=== PATIENT | female | born 1945 | race Caucasian/White ===

== ENCOUNTER 2018-01-25 16:20 | Inpatient (IN) | payer MEDICARE ==
[~2018-01-25] VITALS: Ht 162.6 cm; Wt 80.0 kg
[2018-01-25] VITALS (10 sets, daily range): BP systolic 140–211; BP diastolic 84–128; PULSE 62–185; RESP 16–20; TEMP 98–98.2; O2SAT 95–98
[~2018-01-25 16:20] MED LIST: 1-ME1LIQ PO; ATOR40TA49 PO; COQ1200C3 PO; DILTCD240 PO; LISI20 PO; OMEG100037 PO; VITA100017 PO
--- NOTE | 2018-01-25 16:29 | PD ---
HPI Chief Complaint: Cardiac Complaint Time Seen by Provider: 16:29 Travel History International Travel<30 days: No Contact w/Intl Traveler<30days: No Traveled to known affect area: No History of Present Illness HPI 72-year-old female came to the emergency room with history of palpitations that started little while ago. Patient looked extremely anxious. She has history of SVT and sees Dr. De Dios for it. EKG was done and it showed narrow complex tachycardia. Patient denies of any chest pain. She appeared extremely anxious and any detailed history was difficult to be obtained due to her state. She was hypertensive upon arrival as well. [facility] Past Medical History Narrative Medical List of her past medical, surgical, social and family history is reviewed from the nursing note. Autoimmune Disease: No Anxiety: No Depression: No Cancer: No Chemotherapy: No Diabetes: No Endocrine: No Immune Disorder: No Psychiatric: No Radiation Therapy: No Sickle Cell Disease: No Thyroid Disease: No Past Surgical History Abdominal Surgery: Yes (appendectomy) AICD: No Appendectomy: Yes Arteriovenous Shunt: No Genitourinary Surgery: Yes (enodometreosis) Insulin Pump: No Joint Replacement: No Pacemaker: No Social History Alcohol Use: Yes (occ) Tobacco Use: No Substance Use: No Allergies-Medications (Allergen,Severity, Reaction): Coded Allergies: No Known Allergies (Unverified Allergy, Unknown, 01/25/18) Comments No known drug allergies. Reported Meds & Prescriptions Reported Meds & Active Scripts Active Reported Hydrochlorothiazide 25 Mg Tab 25 Mg PO DAILY Losartan (Losartan Potassium) 100 Mg Tab 100 Mg PO DAILY Narrative Medication List of her home medications reviewed from the nursing note. Review of Systems Except as stated in HPI: all other systems reviewed are Neg Cardiovascular: Positive: Palpitations Physical Exam Narrative GENERAL: Awake, alert, anxious, moderate distress SKIN: Focused skin assessment warm/dry. HEAD: Atraumatic. Normocephalic. EYES: Pupils equal and round. No scleral icterus. No injection or drainage. ENT: No nasal bleeding or discharge. Mucous membranes pink and moist. NECK: Trachea midline. No JVD. CARDIOVASCULAR: Regular rate and rhythm. Tachycardia. No murmur appreciated. RESPIRATORY: No accessory muscle use. Clear to auscultation. Breath sounds equal bilaterally. GASTROINTESTINAL: Abdomen soft, non-tender, nondistended. Hepatic and splenic margins not palpable. MUSCULOSKELETAL: No obvious deformities. No clubbing. No cyanosis. No edema. NEUROLOGICAL: Awake and alert. No obvious cranial nerve deficits. Motor grossly within normal limits. Normal speech. PSYCHIATRIC: Appropriate mood and affect; insight and judgment normal. Data Data Last Documented VS Vital Signs Date Time Temp Pulse Resp B/P (MAP) Pulse Ox O2 Delivery O2 Flow Rate FiO2 01/25/18 17:57 114 170/106 (127) 178/107 (130) 01/25/18 17:56 16 98 Nasal Cannula 2.00 01/25/18 16:28 98.2 Orders Orders Adenosine Inj (Adenocard Inj) (01/25/18 16:33) Adenosine Inj (Adenocard Inj) (01/25/18 16:39) Lorazepam Inj (Ativan Inj) (01/25/18 16:44) Electrocardiogram (01/25/18 16:47) Basic Metabolic Panel (Bmp) (01/25/18 16:47) Complete Blood Count With Diff (01/25/18 16:47) Magnesium (Mg) (01/25/18 16:47) Prothrombin Time / Inr (Pt) (01/25/18 16:47) Troponin I (01/25/18 16:47) Chest, Single Ap (01/25/18 16:47) Ecg Monitoring (01/25/18 16:47) Bilateral Bp Monitoring (01/25/18 16:47) Iv Access Insert/Monitor (01/25/18 16:47) Oximetry (01/25/18 16:47) Oxygen Administration (01/25/18 16:47) Sodium Chloride 0.9% Flush (Ns Flush) (01/25/18 17:00) Vital Signs (Adult) Q15MX4,Q4H (01/25/18 16:47) Naval Inspector / Telemetry AMADO.Q8H (01/25/18 16:47) Cardiac Rhythm AMADO.Q8H (01/25/18 16:47) Notify Dr: Other (01/25/18 16:47) Diltiazem Inj (Cardizem Inj) (01/25/18 17:00) Diltiazem Inj (Cardizem Inj) (01/25/18 17:00) Lorazepam Inj (Ativan Inj) (01/25/18 17:00) Heparin Inj (Heparin Inj) (01/25/18 17:45) Heparin Inj (Heparin Inj) (01/25/18 23:45) Heparin Inj (Heparin Inj) (01/25/18 23:45) Heparin-D5w 25,000 U/250 Ml (Heparin-D5w (01/25/18 17:45) Cbc No Diff, Includes Plts (01/28/18 06:00) Act Partial Throm Time (Ptt) (01/26/18 00:36) Occult Blood (Hemoccult) Stool (01/25/18 17:36) Heparin-D5w 25,000 U/250 Ml (Heparin-D5w (01/25/18 18:00) Potassium Chlor 10 Meq Premix (Kcl 10 Me (01/25/18 18:00) Potassium Chloride (Kcl) (01/25/18 18:00) Admit Order (Ed Use Only) (01/25/18 18:19) Admit To Inpatient (01/25/18 ) Vital Signs (Adult) Q4H (01/25/18 18:17) Activity Oob Ad Ladi (01/25/18 18:17) Activity Bed Rest With Brp (01/25/18 18:17) Diet Heart Healthy (01/25/18 Dinner) Sodium Chlor 0.9% 1000 Ml Inj (Ns 1000 M (01/25/18 19:00) Sodium Chloride 0.9% Flush (Ns Flush) (01/25/18 18:30) Sodium Chloride 0.9% Flush (Ns Flush) (01/25/18 21:00) Acetaminophen (Tylenol) (01/25/18 19:00) Ondansetron Inj (Zofran Inj) (01/25/18 19:00) Basic Metabolic Panel (Bmp) (01/26/18 06:00) Complete Blood Count With Diff (01/26/18 06:00) Resp Oxygen Chris C Titrat 1-4 L (01/25/18 ) Naloxone Inj (Narcan Inj) (01/25/18 18:30) Magnesium Hydroxide Liq (Milk Of Magnesi (01/25/18 19:00) Potassium Chloride (Kcl) (01/25/18 21:00) Consult Cardiology (01/25/18 ) Hydrochlorothiazide (Hydrodiuril) (01/25/18 20:00) Losartan (Cozaar) (01/26/18 09:00) Thyroid Stimulating Hormone (01/25/18 16:45) Act Partial Throm Time (Ptt) (01/25/18 16:45) Labs Laboratory Tests Test 01/25/18 16:45 White Blood Count 11.6 TH/MM3 Red Blood Count 5.54 MIL/MM3 Hemoglobin 16.1 GM/DL Hematocrit 47.0 % Mean Corpuscular Volume 84.9 FL Mean Corpuscular Hemoglobin 29.1 PG Mean Corpuscular Hemoglobin Concent 34.3 % Red Cell Distribution Width 12.9 % Platelet Count 229 TH/MM3 Mean Platelet Volume 9.3 FL Neutrophils (%) (Auto) 70.6 % Lymphocytes (%) (Auto) 21.3 % Monocytes (%) (Auto) 5.3 % Eosinophils (%) (Auto) 2.4 % Basophils (%) (Auto) 0.4 % Neutrophils # (Auto) 8.2 TH/MM3 Lymphocytes # (Auto) 2.5 TH/MM3 Monocytes # (Auto) 0.6 TH/MM3 Eosinophils # (Auto) 0.3 TH/MM3 Basophils # (Auto) 0.0 TH/MM3 CBC Comment DIFF FINAL Differential Comment Prothrombin Time 10.0 SEC Prothromb Time International Ratio 1.0 RATIO Activated Partial Thromboplast Time 24.5 SEC Blood Urea Nitrogen 16 MG/DL Creatinine 0.75 MG/DL Random Glucose 157 MG/DL Calcium Level 10.7 MG/DL Magnesium Level 1.9 MG/DL Sodium Level 140 MEQ/L Potassium Level 2.9 MEQ/L Chloride Level 106 MEQ/L Carbon Dioxide Level 21.8 MEQ/L Anion Gap 12 MEQ/L Estimat Glomerular Filtration Rate 76 ML/MIN Troponin I LESS THAN 0.02 NG/ML Thyroid Stimulating Hormone 3rd Gen 1.030 uIU/ML [facility] Medical Decision Making Medical Screen Exam Complete: Yes Emergency Medical Condition: Yes Medical Record Reviewed: Yes Interpretation(s) Twelve-lead EKG was reviewed by me. Narrow complex tachycardia. Heart rate of 189 bpm. Differential Diagnosis A. fib with RVR, atrial flutter, supraventricular tachycardia Narrative Course 6:15 PM patient was chemically cardioverted by me. Please refer to my procedure note. Overall patient tolerated it well. She was given 1 mg of Ativan for her anxiety. I just went back and reassessed her and her heart rate is in 1 teens. She is persistently in atrial fibrillation as per a repeat EKG just done. As per the patient, this is new. She has been worked up by her medical records analyst in the past and has never been told that she has A. Fib. She is not on any blood thinners. I have started her on Cardizem drip and heparin bolus and drip. I discussed the case with Dr. Gatica who is on-call for cardiology. As per him the management so far has been adequate but she will require to be transferred to the main hospital so that she can be seen by [place] epic analyst. I discussed this with the patient and she knows the plan. I discussed the case with the hospitalist was accepted the patient. Awaiting for transfer. Also her potassium level was low. Patient was given p.o. and IV replacement. Critical Care Narrative Aggregate critical care time was 60 minutes. Time to perform other separately billable procedures was not included in the critical care time. My time did not include minutes spent treating any other patients simultaneously or on activities that did not directly contribute to the patient's treatment. The services I provided to this patient were to treat and/or prevent clinically significant deterioration that could result in: Narrow complex tachycardia, chemical cardioversion, Cardizem bolus and drip , heparin bolus and drip, IV potassium replacement for hypokalemia I provided critical care services requiring my management, as noted below: Chart data review, documentation time, medication orders and management, vital sign assessments/reviewing monitor data, ordering and reviewing lab tests, ordering and interpreting/reviewing x-rays and diagnostic studies, care of the patient and discussion of the patient with the admitting physicians. Procedures Procedure Narrative Chemical cardioversion: 6 mg of adenosine was injected through an AC line. This did not cause a cardioversion. A repeat of adenosine was done with 12 mg at this time. Patient did convert briefly for about 10 seconds and went back to the narrow complex tachycardia without P waves. Patient was given another 12 mg of adenosine and this time she converted and stayed persistently in a converted rhythm. There was a 12-lead EKG constantly running which captured the pause after Adenosine injection and the post conversion. Patient was in A. fib with RVR post conversion. Overall patient tolerated the procedure well. Blood pressure remained hypertensive. EKG Prior to Arrival: No Physician Communication Physician Communication Dr. Gatica Diagnosis Primary Impression: SVT (supraventricular tachycardia) Additional Impressions: Atrial fibrillation with RVR Hypertension Qualified Codes: I10 - Essential (primary) hypertension New onset a-fib Hypokalemia Admitting Information Admitting Physician Requests: Admit Juan Tyler MD Jan 25, 2018 16:29
[2018-01-25] MEDS ORDERED: ADENOSINE IV SOLN 3 MG/ML 2 ML VIAL ONE ×2 (16:33→16:39)
[2018-01-25] MEDS ORDERED: LORazepam 2 MG/ML VIAL ONE (16:44)
[2018-01-25] MEDS ORDERED: LORazepam 2 MG/ML VIAL IV PUSH ONE (17:00)
[2018-01-25] MEDS ORDERED: SODIUM CHLORIDE 0.9% FLUSH 10 ML FLUSH IVF PRN (17:00)
[2018-01-25] MEDS ORDERED: DILTIAZEM HCL 25 MG/5 ML VIAL IV PUSH ONE (17:00)
[2018-01-25 17:01] LABS: AUTOMATED NEUTROPHIL # 8.2 TH/MM3 (1.8-7.7); BASOPHIL % 0.4 % (0.0-2.0); EOSINOPHIL # 0.3 TH/MM3 (0-0.4); EOSINOPHIL % 2.4 % (0.0-4.0); HEMOGLOBIN 16.1 GM/DL (11.6-15.3); LYMPH % 21.3 % (9.0-44.0); LYMPHOCYTE # 2.5 TH/MM3 (1.0-4.8); MEAN CELL VOLUME 84.9 FL (80.0-100.0); MEAN CORPUSCULAR HEMOGLOBIN 29.1 PG (27.0-34.0); MEAN CORPUSCULAR HGB CONC 34.3 % (32.0-36.0); MEAN PLATELET VOLUME 9.3 FL (7.0-11.0); MONO % 5.3 % (0.0-8.0); MONOCYTE # 0.6 TH/MM3 (0-0.9); NEUT % 70.6 % (16.0-70.0); PLATELET COUNT 229 TH/MM3 (150-450); RED BLOOD COUNT 5.54 MIL/MM3 (4.00-5.30); RED CELL DISTRIBUTION WIDTH 12.9 % (11.6-17.2); WHITE BLOOD COUNT 11.6 TH/MM3 (4.0-11.0)
[2018-01-25] MEDS: DILTIAZEM INJ 125 MG in SODIUM CHLORIDE 0.9% INJ 100 ML IV PRN (17:24)
--- NOTE | 2018-01-25 17:27 | RADRPT ---
EXAM DATE/TIME: 01/25/2018 16:52 [facility] COMPARISON: CHEST SINGLE AP, June 28, 2016, 12:34. INDICATIONS : Chest pain. MEDICAL HISTORY : Hypertension. SURGICAL HISTORY : Appendectomy. ENCOUNTER: Initial ACUITY: 1 day PAIN SCORE: 4/10 LOCATION: Bilateral chest FINDINGS: A single view of the chest demonstrates the lungs to be symmetrically aerated without evidence of mas s, infiltrate or effusion. The cardiomediastinal contours are unremarkable. Advanced degenerative c hanges in both shoulders, stable.. CONCLUSION: The lungs are clear. Ronnell Jules MD on January 25, 2018 at 17:24 Board Certified Radiologist. This report was verified electronically.
[2018-01-25 17:34] LABS: BICARBONATE 21.8 MEQ/L (21.0-32.0); BLOOD UREA NITROGEN 16 MG/DL (7-18); CALCIUM 10.7 MG/DL (8.5-10.1); CHLORIDE 106 MEQ/L (98-107); CREATININE 0.75 MG/DL (0.50-1.00); GLOMERULAR FILTRATION RATE 76 ML/MIN (>89); GLUCOSE,RANDOM 157 MG/DL (74-106); MAGNESIUM 1.9 MG/DL (1.5-2.5); SODIUM (NA) 140 MEQ/L (136-145); TROPONIN I LESS THAN 0.02 NG/ML (0.02-0.05)
[2018-01-25] MEDS ORDERED: HEPARIN-D5W 25,000 U/250 ML 250 ML IV PRN (17:45)
[2018-01-25] MEDS ORDERED: HEPARIN SODIUM - IV 10,000 UNITS/10 ML VIAL IV ONE (17:45)
[2018-01-25] MEDS ORDERED: POTASSIUM CHLORIDE 20 MEQ CONTROLLED RELEASE TAB PO ONE (18:00)
[2018-01-25] MEDS ORDERED: HEPARIN 25,000 UNITS/D5W 250ML IV PRN (18:00)
[2018-01-25] MEDS ORDERED: POTASSIUM CHLOR 10 MEQ PREMIX 100 ML IV ONE (18:00)
[2018-01-25] MEDS ORDERED: HYDR25TA5 PO (18:16)
[2018-01-25] MEDS ORDERED: METO1TAB43 PO (18:16)
[2018-01-25] MEDS ORDERED: LOSA100T PO (18:16)
[2018-01-25] MEDS ORDERED: SODIUM CHLORIDE 0.9% FLUSH 10 ML FLUSH IV FLUSH PRN (18:30)
[2018-01-25] MEDS ORDERED: NALOXONE HCL 0.4 MG/ML AMP IV PUSH PRN (18:30)
[2018-01-25] MEDS ORDERED: ACETAMINOPHEN 325 MG TAB PO PRN (19:00)
[2018-01-25] MEDS ORDERED: ONDANSETRON HCL 4 MG/2 ML VIAL IVP PRN (19:00)
[2018-01-25] MEDS ORDERED: MAGNESIUM HYDROXIDE SUSP 30 ML CUP PO PRN (19:00)
[2018-01-25] MEDS: SODIUM CHLOR 0.9% 1000 ML INJ 1,000 ML IV SCH (19:45)
[2018-01-25] MEDS: HYDROCHLOROTHIAZIDE 25 MG TAB PO SCH (20:00)
[2018-01-25] MEDS: POTASSIUM CHLORIDE 10 MEQ CONTROLLED RELEASE TAB PO SCH (21:00)
[2018-01-25] MEDS: SODIUM CHLORIDE 0.9% FLUSH 10 ML FLUSH IV FLUSH SCH (21:00)
[2018-01-25] MEDS ORDERED: METOPROLOL TARTRATE 5 MG/5 ML VIAL IV PUSH ONE (21:00)
[2018-01-25] MEDS ORDERED: HEPARIN SODIUM - IV 10,000 UNITS/10 ML VIAL IV PRN ×2 (23:45)
--- NOTE | 2018-01-25 23:52 | HHI.HP ---
HPI Service [facility] Primary Care Physician Unknown Admission Diagnosis SVT, A. fib with RVR, new onset A. fib Diagnoses: (1) SVT (supraventricular tachycardia) (2) Atrial fibrillation with RVR (3) New onset a-fib (4) Hypertension Chief Complaint: Palpitations Travel History International Travel<30 Days: No Contact w/Intl Traveler <30 Da: No Traveled to Known Affected Are: No History of Present Illness Ms. Rachel is a very pleasant 72 year-old female with a history of hypertension and SVT who presented to the ER in [place] with SVT. The patient received Adenosine per ACLS protocol requiring a third dose at 12 mg IV to convert out of SVT. Following conversion, she went into atrial fibrillation with RVR and was placed upon a Cardizem drip. Dr. Gatica was assistant finance director business relationship manager and recommended admission to [facility] under hospitalist service for possible EPS study. The patient is seen in her hospital room. She reports similar episode 18 months ago that occurred immediately following a spinning class at the [facility]. Today, she attended and spinning class as well but felt fine afterwards until about 1330 when she felt a little light headed and then began to feel severe palpitations. She states her entire body felt like it was vibrating. She states this is exactly the way she felt with SVT 18 months ago. She remained at home for about 2 hours, hoping that she could break the rhythm on her own. She denies any accompanying chest pain, shortness of breath, diaphoresis, nausea , or vomiting. She has been in her normal state of good health prior to this. Outpatient assistant finance director is Dr. Muniz. She saw him last one week ago. Review of Systems Except as stated in HPI: all other systems reviewed are Neg Past Family Social History Past Medical History SVT 1 and 1/2 years ago Hypertension . Past Surgical History Appendectomy Tonsillectomy Surgery for Endometriosis . Reported Medications Reported Meds & Active Scripts Active Reported Hydrochlorothiazide 25 Mg Tab 25 Mg PO DAILY Losartan (Losartan Potassium) 100 Mg Tab 100 Mg PO DAILY . Allergies: Coded Allergies: No Known Allergies (Unverified Allergy, Unknown, 4/4/18) Family History Father age 48 from [place] GF in his 70's from [place] Uncle in his 70's from [place] GM from a [place] in her 70's . Social History Tobacco: smoked in the 80's rarely and only socially Alcohol: drinks wine on weekends Illicit Drugs: denies . Physical Exam Vital Signs Vital Signs Date Time Temp Pulse Resp B/P (MAP) Pulse Ox O2 Delivery O2 Flow Rate FiO2 01/25/18 23:11 98.0 71 16 146/84 (104) 96 01/25/18 22:14 01/25/18 21:51 62 18 140/88 (105) 95 Room Air 01/25/18 19:49 106 18 156/108 (124) 96 Nasal Cannula 2.00 01/25/18 18:25 118 18 164/112 (129) 98 Nasal Cannula 2.00 01/25/18 17:57 114 170/106 (127) 178/107 (130) 01/25/18 17:56 141 16 178/107 (130) 98 Nasal Cannula 2.00 01/25/18 17:24 136 168/110 01/25/18 16:40 124 16 211/111 (144) 98 Nasal Cannula 2.00 01/25/18 16:37 98 Nasal Cannula 2.00 01/25/18 16:37 189 01/25/18 16:30 98 Nasal Cannula 2.00 01/25/18 16:30 16 98 Nasal Cannula 2.00 01/25/18 16:28 98.2 185 20 183/128 (146) 96 Physical Exam CONSTITUTIONAL: This is a well-nourished, well-developed female patient who appears younger than her stated age, in no apparent distress. INTEGUMENTARY: No rashes lesions. Cool and dry. HEAD: Atraumatic. Normocephalic. EYES: No scleral icterus. No injection or drainage. ENT: Nose without bleeding, purulent drainage. NECK: Trachea midline. No JVD. CARDIOVASCULAR: Irregularly irregular rate and rhythm without murmurs, gallops, or rubs. RESPIRATORY: Clear to auscultation. Breath sounds equal bilaterally. No wheezes , rales, or rhonchi. GASTROINTESTINAL: Abdomen soft, non-tender, nondistended. No guarding. MUSCULOSKELETAL: Extremities without clubbing, cyanosis, or edema. No calf tenderness. NEUROLOGICAL: Awake and alert. Motor and sensory grossly within normal limits. Normal speech. . Laboratory Laboratory Tests Test 01/25/18 16:45 White Blood Count 11.6 Red Blood Count 5.54 Hemoglobin 16.1 Hematocrit 47.0 Mean Corpuscular Volume 84.9 Mean Corpuscular Hemoglobin 29.1 Mean Corpuscular Hemoglobin Concent 34.3 Red Cell Distribution Width 12.9 Platelet Count 229 Mean Platelet Volume 9.3 Neutrophils (%) (Auto) 70.6 Lymphocytes (%) (Auto) 21.3 Monocytes (%) (Auto) 5.3 Eosinophils (%) (Auto) 2.4 Basophils (%) (Auto) 0.4 Neutrophils # (Auto) 8.2 Lymphocytes # (Auto) 2.5 Monocytes # (Auto) 0.6 Eosinophils # (Auto) 0.3 Basophils # (Auto) 0.0 CBC Comment DIFF FINAL Differential Comment Prothrombin Time 10.0 Prothromb Time International Ratio 1.0 Activated Partial Thromboplast Time 24.5 Blood Urea Nitrogen 16 Creatinine 0.75 Random Glucose 157 Calcium Level 10.7 Magnesium Level 1.9 Sodium Level 140 Potassium Level 2.9 Chloride Level 106 Carbon Dioxide Level 21.8 Anion Gap 12 Estimat Glomerular Filtration Rate 76 Troponin I LESS THAN 0.02 Thyroid Stimulating Hormone 3rd Gen 1.030 Result Diagram: 01/25/18 1645 01/25/18 1645 Imaging Last Impressions Chest X-Ray 01/25/18 1647 Signed Impressions: Service Date/Time: Thursday, January 25, 2018 16:52 - CONCLUSION: The lungs are clear. Ronnell Jules MD . Caprini VTE Risk Assessment Caprini VTE Risk Assessment: Mod/High Risk (score >= 2) Caprini Risk Assessment Model Point Value = 1 Point Value = 2 Point Value = 3 Point Value = 5 Age 41-60 Minor surgery BMI > 25 kg/m2 Swollen legs Varicose veins or History of unexplained or recurrent spontaneous Oral contraceptives or hormone replacement Sepsis (< 1 month) Serious lung disease, including pneumonia (< 1 month) Abnormal pulmonary function Acute myocardial infarction Congestive heart failure (< 1 month) History of inflammatory bowel disease Medical patient at bed rest Age 61-74 Arthroscopic surgery Major open surgery (> 45 min) Laparoscopic surgery (> 45 min) Malignancy Confined to bed (> 72 hours) Immobilizing plaster cast Central venous access Age >= 75 History of VTE Family history of VTE Factor V Leiden Prothrombin [id number] Lupus anticoagulant Anticardiolipin antibodies Elevated serum homocysteine Heparin-induced thrombocytopenia Other congenital or acquired thrombophilia Stroke (< 1 month) Elective arthroplasty Hip, pelvis, or leg fracture Acute spinal cord injury (< 1 month) Prophylaxis Regimen Total Risk Factor Score Risk Level Prophylaxis Regimen 0-1 Low Early ambulation 2 Moderate Order ONE of the following: *Sequential Compression Device (SCD) *Heparin 5000 units SQ BID 3-4 Higher Order ONE of the following medications: *Heparin 5000 units SQ TID *Enoxaparin/Lovenox 40 mg SQ daily (WT < 150 kg, CrCl > 30 mL/min) *Enoxaparin/Lovenox 30 mg SQ daily (WT < 150 kg, CrCl > 10-29 mL/min) *Enoxaparin/Lovenox 30 mg SQ BID (WT < 150 kg, CrCl > 30 mL/min) AND/OR *Sequential Compression Device (SCD) 5 or more Highest Order ONE of the following medications: *Heparin 5000 units SQ TID (Preferred with Epidurals) *Enoxaparin/Lovenox 40 mg SQ daily (WT < 150 kg, CrCl > 30 mL/min) *Enoxaparin/Lovenox 30 mg SQ daily (WT < 150 kg, CrCl > 10-29 mL/min) *Enoxaparin/Lovenox 30 mg SQ BID (WT < 150 kg, CrCl > 30 mL/min) AND *Sequential Compression Device (SCD) Assessment and Plan Problem List: (1) New onset a-fib ICD Code: I48.91 - Unspecified atrial fibrillation Status: Acute (2) Atrial fibrillation with RVR ICD Code: I48.91 - Unspecified atrial fibrillation Status: Acute (3) SVT (supraventricular tachycardia) ICD Code: I47.1 - Supraventricular tachycardia Status: Acute (4) Hypertension ICD Code: I10 - Essential (primary) hypertension Status: Acute Assessment and Plan Ms. Rachel is a very pleasant 72 year-old female with a history of hypertension and SVT who presented to the ER in [place] with SVT. The patient received Adenosine per ACLS protocol requiring a third dose at 12 mg IV to convert out of SVT. Following conversion, she went into atrial fibrillation with RVR and was placed upon a Cardizem drip. Dr. Gatica was assistant finance director business relationship manager and recommended admission to [facility] under hospitalist service for possible EPS study. New Onset Atrial Fibrillation with RVR -On cardizem drip -Metoprolol 5 mg IV x one dose with resolution of rapid rate -Heparin drip - further anticoagulation per assistant finance director -consult assistant finance director, Dr. Muniz -TSH within normal parameters -discussed condition with patient -continuous cardiac telemetry to monitor rate and rhythm Hypokalemia - Potassium 2.9 on admission - replaced p.o. and IV - recheck BMP and follow results, further potassium replacement as indicated SVT - resolved - converted following ACLS adenosine protocol - 3 doses required for conversion Hypertension -resume home medications and monitor bp readings. Adjust treatments as needed DVT prophylaxis - currently on heparin drip - further anticoagulation per assistant finance director . Discussed Condition With Patient, RN, and Dr. Padilla . Physician Certification 2 Midnight Certification Type: Admission for Inpatient Services Order for Inpatient Services The services are ordered in accordance with Medicare regulations or non- Medicare payer requirements, as applicable. In the case of services not specified as inpatient-only, they are appropriately provided as inpatient services in accordance with the 2-midnight benchmark. Estimated LOS (days): 3 days is the estimated time the patient will need to remain in the hospital, assuming treatment plan goals are met and no additional complications. Post-Hospital Plan: Home Problem Qualifiers (1) Hypertension: Qualified Codes: I10 - Essential (primary) hypertension Amy Roberts Jan 25, 2018 23:52
[2018-01-26] VITALS (27 sets, daily range): BP systolic 152–198; BP diastolic 87–105; PULSE 56–86; RESP 14–20; TEMP 97.9–98.6; O2SAT 93–97
[2018-01-26 01:44] LABS: AUTOMATED NEUTROPHIL # 5.6 TH/MM3 (1.8-7.7); BASOPHIL # 0.1 TH/MM3 (0-0.2); BASOPHIL % 0.7 % (0.0-2.0); EOSINOPHIL # 0.2 TH/MM3 (0-0.4); HEMATOCRIT 45.5 % (35.0-46.0); HEMOGLOBIN 15.3 GM/DL (11.6-15.3); LYMPH % 24.6 % (9.0-44.0); LYMPHOCYTE # 2.1 TH/MM3 (1.0-4.8); MEAN CELL VOLUME 86.3 FL (80.0-100.0); MEAN CORPUSCULAR HGB CONC 33.6 % (32.0-36.0); MEAN PLATELET VOLUME 9.3 FL (7.0-11.0); MONO % 6.1 % (0.0-8.0); MONOCYTE # 0.5 TH/MM3 (0-0.9); NEUT % 66.6 % (16.0-70.0); PLATELET COUNT 204 TH/MM3 (150-450); RED BLOOD COUNT 5.27 MIL/MM3 (4.00-5.30); RED CELL DISTRIBUTION WIDTH 13.3 % (11.6-17.2); WHITE BLOOD COUNT 8.4 TH/MM3 (4.0-11.0)
[2018-01-26 02:06] LABS: BICARBONATE 23.1 MEQ/L (21.0-32.0); CALCIUM 9.9 MG/DL (8.5-10.1); CREATININE 0.64 MG/DL (0.50-1.00)
[2018-01-26] MEDS ORDERED: POTASSIUM CHLORIDE 20 MEQ CONTROLLED RELEASE TAB PO ONE (02:15)
[2018-01-26] MEDS: SODIUM CHLOR 0.9% 1000 ML INJ 1,000 ML IV SCH ×2 (08:16→17:02)
[2018-01-26] MEDS: DILTIAZEM INJ 125 MG in SODIUM CHLORIDE 0.9% INJ 100 ML IV PRN (08:17)
[2018-01-26] MEDS ORDERED: LOSARTAN 50 MG TAB PO SCH (09:00)
[2018-01-26] MEDS ORDERED: ENALAPRILAT 1.25 MG/ML VIAL IV PUSH ONE (10:00)
[2018-01-26] MEDS: POTASSIUM CHLORIDE 10 MEQ CONTROLLED RELEASE TAB PO SCH ×2 (10:07→21:17)
[2018-01-26] MEDS: HYDROCHLOROTHIAZIDE 25 MG TAB PO SCH (10:07)
[2018-01-26] MEDS: SODIUM CHLORIDE 0.9% FLUSH 10 ML FLUSH IV FLUSH SCH ×2 (10:08→21:17)
--- NOTE | 2018-01-26 13:46 | EKG ---
Date Performed: 01/25/2018 Time Performed: 17:49:49 PTAGE: 72 years EKG: ATRIAL FIBRILLATION WITH RAPID VENTRICULAR RESPONSE VOLTAGE CRITERIA FOR LVH ST DEVIATION A ND MODERATE T-WAVE ABNORMALITY, CONSIDER LATERAL ISCHEMIA ABNORMAL ECG Since the PREVIOUS TRACING , no significant change noted PREVIOUS TRACIN01/25/2018 16.43 DOCTOR: Elvira Grant Interpretating Date/Time 01/26/2018 13:43:07
[2018-01-26] MEDS: ENALAPRILAT 1.25 MG/ML VIAL IV PUSH PRN (15:46)
--- NOTE | 2018-01-26 16:03 | HHI.PR ---
Subjective Remarks Patient sitting on the chair, friends at the bedside Denied chest pain short of breath palpitation lightheaded or dizziness Patient had multiple questions regarding her A. fib condition, she asked about the difference between A. fib and SVT also she think losartan precipitated her A. fib episode All her question was extensively explained to her satisfaction Objective Vitals Vital Signs Date Time Temp Pulse Resp B/P (MAP) Pulse Ox O2 Delivery O2 Flow Rate FiO2 01/26/18 15:00 66 01/26/18 14:00 68 01/26/18 13:00 64 01/26/18 12:00 66 01/26/18 11:00 68 01/26/18 11:00 98.4 71 16 152/87 (108) 97 01/26/18 10:00 72 01/26/18 09:35 96 21 01/26/18 09:00 70 01/26/18 08:17 76 163/98 01/26/18 08:00 72 01/26/18 08:00 98.6 76 14 163/98 (119) 96 01/26/18 07:00 76 01/26/18 06:00 72 01/26/18 05:00 72 01/26/18 04:00 76 01/26/18 03:00 97.9 86 16 155/95 (115) 96 01/26/18 03:00 74 01/26/18 02:00 86 01/26/18 01:00 80 01/26/18 00:00 64 01/25/18 23:15 71 01/25/18 23:11 98.0 71 16 146/84 (104) 96 01/25/18 22:14 01/25/18 21:51 62 18 140/88 (105) 95 Room Air 01/25/18 19:49 106 18 156/108 (124) 96 Nasal Cannula 2.00 01/25/18 18:25 118 18 164/112 (129) 98 Nasal Cannula 2.00 01/25/18 17:57 114 170/106 (127) 178/107 (130) 01/25/18 17:56 141 16 178/107 (130) 98 Nasal Cannula 2.00 01/25/18 17:24 136 168/110 01/25/18 16:40 124 16 211/111 (144) 98 Nasal Cannula 2.00 4/4/18 16:37 98 Nasal Cannula 2.00 01/25/18 16:37 189 01/25/18 16:30 98 Nasal Cannula 2.00 01/25/18 16:30 16 98 Nasal Cannula 2.00 01/25/18 16:28 98.2 185 20 183/128 (146) 96 I/O 01/25/18 01/25/18 01/25/18 01/26/18 01/26/18 01/26/18 07:00 15:00 23:00 07:00 15:00 23:00 Intake Total 100 ml 240 ml Balance 100 ml 240 ml Intake Oral 240 ml IV Total 100 ml # Voids 1 # Bowel Movements 0 Result Diagram: 01/26/18 0103 01/26/18 0103 Objective Remarks GENERAL: This is a well-nourished, well-developed patient, in no apparent distress. CARDIOVASCULAR: Regular rate and irregular rhythm without murmurs, gallops, or rubs. RESPIRATORY: Clear to auscultation. Breath sounds equal bilaterally. No wheezes , rales, or rhonchi. GASTROINTESTINAL: Abdomen soft, non-tender, nondistended. Normal, active bowel sounds MUSCULOSKELETAL: Extremities without clubbing, cyanosis, or edema. NEURO: Alert & Oriented x4 to person, place, time, situation. Moves all ext x4 A/P Problem List: (1) New onset a-fib ICD Code: I48.91 - Unspecified atrial fibrillation Status: Acute (2) Atrial fibrillation with RVR ICD Code: I48.91 - Unspecified atrial fibrillation Status: Acute (3) SVT (supraventricular tachycardia) ICD Code: I47.1 - Supraventricular tachycardia Status: Acute (4) Hypertension ICD Code: I10 - Essential (primary) hypertension Status: Acute Assessment and Plan Ms. Rachel is a very pleasant 72 year-old female with a history of hypertension and SVT who presented to the ER in [place] with SVT. The patient received Adenosine per ACLS protocol requiring a third dose at 12 mg IV to convert out of SVT. Following conversion, she went into atrial fibrillation with RVR and was placed upon a Cardizem drip. Dr. Gatica was boom crane operator watermelon inspector and recommended admission to [facility] under hospitalist service for possible EPS study. New Onset Atrial Fibrillation with RVR -Continue Cardizem drip and heparin drip, -Dr. Cuevas cardiology consulted -TSH within normal parameters -discussed condition with patient -continuous cardiac telemetry to monitor rate and rhythm Hypokalemia - Potassium 2.9 on admission improved now - replaced as needed SVT - resolved - converted following ACLS adenosine protocol - 3 doses required for conversion Hypertension -resume home medications and monitor bp readings. Adjust treatments as needed DVT prophylaxis - currently on heparin drip - further anticoagulation per boom crane operator Discharge Planning Discharge patient to home Condition on discharge: Improved Healthy heart diet as tolerated Ad Ladi activity Rx written: See med rec Follow-up with primary care physician and cardiology in 3-5 days Problem Qualifiers (1) Hypertension: Qualified Codes: I10 - Essential (primary) hypertension Jahaira Stewart MD Jan 26, 2018 16:03
[2018-01-26] MEDS ORDERED: LABETALOL HCL 100 MG/20 ML VIAL IV PUSH PRN (19:45)
[2018-01-26] MEDS ORDERED: LABETALOL HCL 100 MG/20 ML VIAL IV PUSH ONE (19:45)
[2018-01-27] VITALS (17 sets, daily range): BP systolic 136–173; BP diastolic 74–101; PULSE 60–113; RESP 17–19; TEMP 97.7–98.2; O2SAT 94–97
[2018-01-27] MEDS: SODIUM CHLOR 0.9% 1000 ML INJ 1,000 ML IV SCH ×2 (01:00→11:00)
--- NOTE | 2018-01-27 08:16 | PD.CARD.PN ---
Subjective Subjective Remarks Feeling better. Objective Medications Current Medications Medications (Trade) Dose Ordered Sig/Rogelio Route Start Time Stop Time Status Last Admin (Heparin Inj) 5,000 units UNSCH PRN IV 01/25/18 23:45 Sodium Chloride 1,000 ml @ 100 mls/hr Q10H IV 01/25/18 19:00 01/26/18 17:02 (NS Flush) 2 ml UNSCH PRN IV FLUSH 01/25/18 18:30 (NS Flush) 2 ml BID IV FLUSH 01/25/18 21:00 01/26/18 21:17 (Tylenol) 650 mg Q4H PRN PO 01/25/18 19:00 (Zofran Inj) 4 mg Q6H PRN IVP 01/25/18 19:00 (Narcan Inj) 0.4 mg UNSCH PRN IV PUSH 01/25/18 18:30 (Milk Of Magnesia Liq) 30 ml Q12H PRN PO 01/25/18 19:00 (KCl) 30 meq Q12HR PO 01/25/18 21:00 01/26/18 21:17 (Hydrodiuril) 25 mg DAILY PO 01/25/18 20:00 01/26/18 10:07 (Vasotec Inj) 1.25 mg Q6H PRN IV PUSH 01/26/18 16:00 01/26/18 15:46 (Norvasc) 10 mg DAILY PO 01/26/18 18:30 01/26/18 18:28 (Trandate Inj) 10 mg Q6H PRN IV PUSH 01/26/18 19:45 Vital Signs / I&O Vital Signs Date Time Temp Pulse Resp B/P (MAP) Pulse Ox O2 Delivery O2 Flow Rate FiO2 01/27/18 06:03 61 01/27/18 05:13 64 01/27/18 04:19 97.7 64 18 136/74 (94) 94 01/27/18 04:00 81 01/27/18 03:00 63 01/27/18 02:00 60 01/27/18 01:00 62 01/27/18 00:00 64 01/26/18 23:45 97.9 67 16 198/105 (136) 96 01/26/18 23:45 98 Nasal Cannula 01/26/18 23:00 62 01/26/18 22:00 56 01/26/18 21:41 93 21 01/26/18 21:00 72 01/26/18 20:00 66 01/26/18 19:50 97.9 67 16 198/105 (136) 96 01/26/18 19:50 96 Nasal Cannula 01/26/18 19:00 67 01/26/18 17:00 70 01/26/18 16:00 70 01/26/18 15:00 98.4 78 20 178/103 (128) 95 01/26/18 15:00 66 01/26/18 14:00 68 01/26/18 13:00 64 01/26/18 12:00 66 01/26/18 11:00 68 01/26/18 11:00 98.4 71 16 152/87 (108) 97 01/26/18 10:00 72 01/26/18 09:35 96 21 01/26/18 09:00 70 01/26/18 08:17 76 163/98 I/O 01/26/18 01/26/18 01/26/18 01/27/18 01/27/18 01/27/18 07:00 15:00 23:00 07:00 15:00 23:00 Intake Total 240 ml 500 ml Output Total 1500 ml Balance 240 ml -1000 ml Intake Oral 240 ml 500 ml Output Urine Total 1500 ml # Voids 1 # Bowel Movements 0 Physical Exam GENERAL: Well-nourished, well-developed patient. SKIN: Warm and dry. HEAD: Normocephalic. EYES: No scleral icterus. No injection or drainage. NECK: Supple, trachea midline. No JVD or lymphadenopathy. CARDIOVASCULAR: Regular rate and rhythm without murmurs, gallops, or rubs. RESPIRATORY: Breath sounds equal bilaterally. No accessory muscle use. GASTROINTESTINAL: Abdomen soft, non-tender, nondistended. EXTREMITIES: No cyanosis, or edema. NEUROLOGICAL: Awake, alert, and oriented x 3. Non-focal. Laboratory Laboratory Tests Test 01/26/18 08:56 Activated Partial Thromboplast Time 33.1 SEC Assessment and Plan Problem List: (1) SVT (supraventricular tachycardia) ICD Codes: I47.1 - Supraventricular tachycardia Status: Acute Plan: Under lying problem likely SVT which converted to A. fib secondary to the adenosine mechanism. Recommend an aspirin daily. Follow-up with Dr. eBe in 2 weeks. (2) Hypertension ICD Codes: I10 - Essential (primary) hypertension Status: Acute Plan: Medications modified, improved today. Stable for discharge home from electrophysiology standpoint when cleared by the managing team per my discussion with Dr. Bee. Problem Qualifiers (1) Hypertension: Qualified Codes: I10 - Essential (primary) hypertension Valeria Peterson Jan 27, 2018 08:16
--- NOTE | 2018-01-27 08:48 | MB ---
cc: Bernice Bee MD DATE: 01/26/2018 HISTORY OF PRESENT ILLNESS: Mrs. Rachel is a 72-year-old female with history of high blood pressure, previous episode of supraventricular tachyarrhythmia around a year and a half ago, very active, does Pilates, as well as a spinning. Was coming from a spinning class, went home, later on developed tachyarrhythmia. She went to the emergency room. Heart rate was around 190 beats per minute. Adenosine was given, went into sinus rhythm. Subsequently, into atrial fibrillation. Cardizem was given. This morning, back into sinus rhythm. The chart was reviewed. The patient was evaluated. ALLERGIES: NONE. SOCIAL HISTORY: She drank during the weekend, a couple of glasses of wine. FAMILY HISTORY: Noncontributory to her current medical condition. MEDICATIONS: At home, the patient was taking losartan 100 mg a day and hydrochlorothiazide 25 mg a day. Currently, she is on Cardizem IV. She is on heparin and metoprolol IV. REVIEW OF SYSTEMS: Currently, she referred no chest pain, no chest discomfort. Feeling better. No vomiting, no fever. PHYSICAL EXAMINATION: GENERAL: Alert, fully oriented. VITAL SIGNS: Her blood pressure 152/82, pulse 68, respiratory rate 18. LUNGS: Good air entry bilaterally. CARDIOVASCULAR: S1, S2. Regular. ABDOMEN: Soft. No masses. EXTREMITIES: No edema. ELECTROCARDIOGRAM ON HOSPITALIZATION: Supraventricular tachyarrhythmia. Subsequently, atrial fibrillation. Telemetry currently shows sinus rhythm. LABORATORY DATA: Hemoglobin is 15.3, white blood cell 8.4. Potassium 3.4, creatinine is 0.64. INR 1.0. ASSESSMENT AND RECOMMENDATIONS: Mrs. Rachel is currently in sinus rhythm. She was in supraventricular tachyarrhythmia. refractory. Adenosine as tendency to induce atrial fibrillation. This is most likely the reason of her atrial fibrillation. The tachycardia looked like atrial flutter versus supraventricular tachycardia. Electrophysiology study and ablation discussed, referred. At this point, she preferred to go home and think about it and call my office for an appointment. Also, her blood pressure is high. She refused to take the losartan. I am going to initiate Norvasc 10 mg a day. Heparin will be discontinued. The blood pressure control can be discharged in the morning. I will follow her during hospitalization. MD BARBARA Cabrera , 04:47 PM , 05:18 PM
[2018-01-27] MEDS: POTASSIUM CHLORIDE 10 MEQ CONTROLLED RELEASE TAB PO SCH (09:31)
[2018-01-27] MEDS: HYDROCHLOROTHIAZIDE 25 MG TAB PO SCH (09:31)
[2018-01-27] MEDS: SODIUM CHLORIDE 0.9% FLUSH 10 ML FLUSH IV FLUSH SCH (09:31)
[2018-01-27] MEDS: ENALAPRILAT 1.25 MG/ML VIAL IV PUSH PRN (09:42)
--- NOTE | 2018-01-27 11:53 | EKG ---
Date Performed: 01/25/2018 Time Performed: 16:25:04 PTAGE: 72 years EKG: UNCERTAIN REGULAR RHYTHM INTRAVENTRICULAR CONDUCTION DELAY ABNORMAL ECG PREVIOUS TRACING : 06/29/2016 00.44 Supraventricular tachycardia is most consistent with atrial flutter or a reentry supraventricular tachycardia. The marked diffuse ST segment depression also sug gests possible associated myocardial ischemia as it is new since the prior tracing. Clinical correlat ion will be important. DOCTOR: Elvira Grant Interpretating Date/Time 01/27/2018 11:51:39
--- NOTE | 2018-01-27 11:53 | EKG ---
Date Performed: 01/25/2018 Time Performed: 16:43:46 PTAGE: 72 years EKG: ATRIAL FIBRILLATION WITH RAPID VENTRICULAR RESPONSE INCOMPLETE RIGHT BUNDLE BRANCH BLOCK MO DERATE VOLTAGE CRITERIA FOR LVH, CONSIDER NORMAL VARIANT NONSPECIFIC ST & T-WAVE ABNORMALITY ABNORMAL RHYTHM ECG PREVIOUS TRACING : 01/25/2018 16.25 Since the prior tracing, supraventricular tachycardia is co ntrolled and the patient is now clearly in atrial fibrillation. There has been marked improvement in the ST segment depression, but some changes persist. Clinical correlation remains important. DOCTOR: Elvira Grant Interpretating Date/Time 01/27/2018 11:52:35
[2018-01-27] MEDS ORDERED: AMLO10 PO (12:44)
== END 2018-01-27 14:46 | disposition home or self-care (01) | DRG 310 ==
LOC: PHED 16:20 → PHEDA 18:21 → HCPC 23:05
PROVIDERS: ADMIT Hospitalist; ATTEND Hospitalist
DX: I48.91 Unspecified atrial fibrillation (principal); I10 Essential (primary) hypertension; I47.1 Supraventricular tachycardia; Z87.891 Personal history of nicotine dependence; E87.6 Hypokalemia
CPT/HCPCS: 71045; 80048; 83735; 84443; 84484; 85025; 85610; 85730; 92960; 93005; 96365; 96375; J0153; J1644; J2060; J3480; J7030